=== PATIENT | male | born 1940 | race Caucasian/White ===

== ENCOUNTER 2017-05-25 07:05 | Day surgery (SDC) | payer OTHER ==
[2017-05-25] MEDS ORDERED: TETRACAINE 0.5% OPHTH 1 DOSE AFFEYE ONE (07:21)
[2017-05-25] MEDS ORDERED: AK-DILATE 2.5% OPHTH 1 DOSE AFFEYE ONE (07:22)
[2017-05-25] MEDS ORDERED: MYDRIACIL OPHTH 1 DOSE AFFEYE ONE (07:22)
[2017-05-25 12:21] VITALS: BP 180/85
== END 2017-05-25 08:25 | disposition home or self-care (01) ==
LOC: SURG1 07:05
PROVIDERS: ATTEND Ophthalmology
PROC: 085F3ZZ Destruction of Left Retina, Percutaneous Approach (ICD-10-PCS; principal; 2017-05-25 08:30)
DX: E11.3512 Type 2 diabetes mellitus with proliferative diabetic retinopathy with macular edema, left eye (principal)

== ENCOUNTER → 2017-06-22 | Day surgery (SDC) | payer OTHER ==
[~2017-06-22] MED LIST: AK-DILATE 2.5% OPHTH 1 DOSE AFFEYE ONE; AK-DILATE 2.5% OPHTH 1 DOSE OP ONE; MYDRIACIL OPHTH 1 DOSE AFFEYE ONE; TETRACAINE 0.5% OPHTH 1 DOSE AFFEYE ONE
[2017-06-22 08:06] VITALS: BP 164/96
== END ==
LOC: SURG1 07:42
PROVIDERS: ATTEND Ophthalmology
PROC: 085E3ZZ Destruction of Right Retina, Percutaneous Approach (ICD-10-PCS; principal; 2017-06-22 08:00)
DX: E11.3511 Type 2 diabetes mellitus with proliferative diabetic retinopathy with macular edema, right eye (principal)